=== PATIENT | female | born 1985 | race Caucasian/White ===

== ENCOUNTER 2024-03-09 12:40 | Outpatient (OUT) | payer BC, SELFPAY ==
--- NOTE | 2024-03-09 14:06 | P.CN_ITS ---
Consult Note: HPI Data of Consult Patient: new to practice Consult date: 03/09/24 Requesting Physician: Nir Rizo MD Primary Care Provider: Julio Gotti MD Consult Narrative Reason for consult: neck pain, migraines Narrative: 38yof who presents for evaluation. longstanding history of neck pain, migraines that stem from neck. imaging shows multilevel arthropathy and spondylosis, worst at c4-5, c5-6. has undergone many different conservative measures, including physical therapy, massage, migraine medications. does not wish to take medications any longer. cc:: CC: Nir Rizo MD Review of Systems ROS Status of ROS 10 or more systems reviewed and unremark able except as noted in history and below Meds Home Medications and Allergies Home Medications ?Medication ?Instructions ?Recorded ?Confirmed ?Type albuterol 90 mcg/actuation aerosol mcg inhalation PRN shortness of 03/09/24 History inhaler breath or wheezing pgdrhldysy-hiiipieaorvmg-nixbfdbd 1 cap PO QID PRN pain 03/09/24 03/09/24 History 50 mg-300 mg-40 mg capsule ondansetron HCl 4 mg tablet 4 mg PO TID-QID PRN nausea and 03/09/24 03/09/24 History vomiting sumatriptan succinate 25 mg tablet See Rx Instructions PO .COMPLEX 03/09/24 03/09/24 History (Imitrex) tizanidine 4 mg capsule 4 mg PO BID PRN muscle spasticity 03/09/24 03/09/24 History Allergies Allergy/AdvReac Type Severity Reaction Status Date / Time nalbuphine (From Nubain) Allergy Mild UNKNOWN Verified 03/09/24 13:45 clarithromycin (From Biaxin) AdvReac Mild UNKNOWN Verified 03/09/24 13:45 promethazine (From Phenergan) AdvReac Mild UNKNOWN Verified 03/09/24 13:45 Exam Narrative Exam Narrative: Psych-alert and oriented x 3.? Attentive and appropriate, constitutionally normal, displays normal mood and affect per situation.? There are no obvious deficits in memory, reasoning, or intellect.? Skin-no obvious rashes, bruising, or erythema noted to the patient's area of pain. Extremities-upper extremities are warm with minimal edema and palpable pulses. Cervical- tenderness to palpation noted in the cervical spine and paraspinal musculature.? Pain is elicited with extension, and lateral rotation of the cervical spine.? Range of motion is slightly diminished due to pain. Facet loading maneuvers are positive bilaterally.? Coordination remains intact.? Gait remains non-antalgic. Assessment and Plan Assessment and Plan (1) Cervical spondylosis: Plan 38yof who presents for evaluation. failed conservative measures, as noted. imaging reviewed, as noted. given symptoms and imaging, prudent to attempt diagnostic bilateral c4-5, 5-6 medial branch blocks under fluoroscopic guidance with intention of proceeding to radiofrequency ablation. she is in agreement. meds reviewed, no changes. follow up after procedure.
== END 2024-03-09 12:41 | disposition home or self-care (01) ==
PROVIDERS: PCP Family Medicine; Visit Provider Anesthesiology
DX: M47.812 Spondylosis without myelopathy or radiculopathy, cervical region (principal)
CPT/HCPCS: G0463

== ENCOUNTER 2024-05-04 15:16 | Outpatient (OUT) | payer BC, SELFPAY ==
[2024-05-04 15:39] LABS: Basophils Percent Auto 0.6 % (0.2-2.0); Eosinophils Absolute Auto 0.2 10^3/uL (0.0-0.7); Eosinophils Percent Auto 3.5 % (0.9-7.0); Hematocrit 40.9 % (36.0-48.0); Hemoglobin 13.6 g/dL (12.0-16.0); Immature Granulocytes Abs Auto 0.01 10^3/uL (0.00-0.03); Immature Granulocytes Pct Auto 0.2 % (0.0-0.5); Lymphocytes Absolute Auto 1.4 10^3/uL (1.2-3.8); Lymphocytes Percent Auto 25.7 % (20.5-60.0); Mean Corpuscular HGB Conc 33.3 g/dL (29.9-35.2); Mean Corpuscular Hemoglobin 31.5 pg (26.7-34.0); Mean Corpuscular Volume 94.7 fL (81.0-99.0); Mean Platelet Volume 10.1 fL (9.5-13.5); Monocytes Absolute Auto 0.5 10^3/uL (0.3-0.8); Monocytes Percent Auto 9.1 % (1.7-12.0); Neutrophils Absolute Auto 3.3 10^3/uL (1.4-6.5); Neutrophils Percent Auto 60.9 % (43.0-75.0); Platelet Count 201 10^3/uL (150-450); Red Blood Count 4.32 10^6/uL (4.20-5.40); Red Cell Distribution Width 12.9 % (11.0-15.0); White Blood Count 5.4 10^3/uL (4.0-11.0)
--- NOTE | 2024-05-04 15:54 | XR_ITS ---
[address] [address] Patient Name: RIDGE COPELAND MRN: [id number] date: 1985 Sex: F Assigned Patient Location: LAB Current Patient Location: LAB Accession/Order Number: [id number] Exam Date: 05/04/2024 19:07 Report Date: 05/04/2024 19:15 At the request of: JAMIL SEGUNDO MD Procedure: XR wrist RT min 3V 3 views right wrist plain film COMPARISON: None HISTORY: Right wrist pain ACUTE FINDINGS: None DEGENERATIVE CHANGE: Unremarkable SOFT TISSUE FINDINGS: Unremarkable JOINT EFFUSION: None POSTOP CHANGES: None BONE MINERALIZATION: Adequate XR/XR wrist RT min 3V IMPRESSION: Unremarkable exam Impression dictated by: Edmundo Taylor M.D.05/04/2024 7:15 PM Dictation Location: [place] [address] Electronically authenticated by: [id number] Y Date: 05/04/2024 19:15
--- NOTE | 2024-05-04 15:54 | XR_ITS ---
The [address] [address] Patient Name: RIDGE COPELAND MRN: [id number] date: 1985 Sex: F Assigned Patient Location: LAB Current Patient Location: LAB Accession/Order Number: [id number] Exam Date: 05/04/2024 19:05 Report Date: 05/04/2024 19:07 At the request of: JAMIL SEGUNDO MD Procedure: XR hand AIDEN min 3v 3 views both hands HISTORY: Bilateral hand pain Adequate alignment. No acute bony findings. No significant degeneration. Unremarkable soft tissues. XR/XR hand AIDEN min 3v IMPRESSION: Unremarkable exam Impression dictated by: Edmundo Taylor M.D.05/04/2024 7:07 PM Dictation Location: [place] [address] Electronically authenticated by: [id number] Y Date: 05/04/2024 19:07
[2024-05-04 16:07] LABS: Alanine Aminotransferase 18 U/L (14-59); Albumin Globulin Ratio 1.3; Albumin Level 4.3 g/dL (3.4-5.0); Alkaline Phosphatase 52 U/L (46-116); Anion Gap 15.3; Aspartate Amino Transferase 19 U/L (15-37); BUN Creatinine Ratio 21.8; Bilirubin Total 0.3 mg/dL (0.2-1.0); Calcium 9.2 mg/dL (8.5-10.1); Carbon Dioxide 26.2 mmol/L (21.0-32.0); Chloride 104 mmol/L (98-107); Estimated GFR (African America >60 (>=60 mL/min/1.73m^2); Estimated GFR (Non-African Ame >60 (>=60 mL/min/1.73m^2); Globulin 3.3 g/dL; Glucose 78 mg/dL (74-106); Potassium 3.5 mmol/L (3.5-5.1); Sodium 142 mmol/L (136-145); Total Protein 7.6 g/dL (6.4-8.2); Uric Acid 4.4 mg/dL (2.6-6.0)
[2024-05-04 16:10] LABS: C Reactive Protein <0.50 mg/dL (<=0.50)
[2024-05-06 04:07] LABS: Antistreptolysin O Ab 279.8 IU/mL (0.0-200.0); Rheumatoid Factor (RF) 10.4 IU/mL (<14.0)
[2024-05-06 17:10] LABS: Antinuclear Antibodies, IFA Negative (.)
== END 2024-05-04 15:17 | disposition home or self-care (01) ==
LOC: LAB 15:18
PROVIDERS: PCP Family Medicine; Visit Provider Family Medicine
DX: Z79.899 Other long term (current) drug therapy (principal); M25.59 Pain in other specified joint; D64.9 Anemia, unspecified; M25.531 Pain in right wrist; M79.642 Pain in left hand; M79.641 Pain in right hand
CPT/HCPCS: 36415; 73110; 73130; 80053; 84550; 85025; 86038; 86060; 86140; 86431

== ENCOUNTER 2024-06-19 11:36 | Outpatient (OUT) | payer BC, SELFPAY ==
[2024-06-19 12:14] LABS: Basophils Percent Auto 0.7 % (0.2-2.0); Eosinophils Absolute Auto 0.1 10^3/uL (0.0-0.7); Eosinophils Percent Auto 1.3 % (0.9-7.0); Hematocrit 39.1 % (36.0-48.0); Immature Granulocytes Abs Auto 0.01 10^3/uL (0.00-0.03); Immature Granulocytes Pct Auto 0.2 % (0.0-0.5); Lymphocytes Absolute Auto 1.2 10^3/uL (1.2-3.8); Lymphocytes Percent Auto 26.3 % (20.5-60.0); Mean Corpuscular HGB Conc 33.2 g/dL (29.9-35.2); Mean Corpuscular Hemoglobin 31.1 pg (26.7-34.0); Mean Corpuscular Volume 93.5 fL (81.0-99.0); Mean Platelet Volume 9.8 fL (9.5-13.5); Monocytes Absolute Auto 0.4 10^3/uL (0.3-0.8); Monocytes Percent Auto 9.4 % (1.7-12.0); Neutrophils Absolute Auto 2.8 10^3/uL (1.4-6.5); Neutrophils Percent Auto 62.1 % (43.0-75.0); Platelet Count 224 10^3/uL (150-450); Red Blood Count 4.18 10^6/uL (4.20-5.40); Red Cell Distribution Width 12.5 % (11.0-15.0); White Blood Count 4.6 10^3/uL (4.0-11.0)
[2024-06-19 12:15] LABS: Estimated Average Glucose 105 mg/dL; Glycohemoglobin A1C 5.3 % (4.5-6.2)
[2024-06-19 12:35] LABS: Erythrocyte Sedimentation Rate 6 mm/hr (<=20)
[2024-06-19 12:38] LABS: Alanine Aminotransferase 19 U/L (14-59); Albumin Globulin Ratio 1.4; Albumin Level 4.3 g/dL (3.4-5.0); Alkaline Phosphatase 40 U/L (46-116); Anion Gap 12.7; Aspartate Amino Transferase 18 U/L (15-37); BUN Creatinine Ratio 18.5; Bilirubin Total 0.7 mg/dL (0.2-1.0); Calcium 8.2 mg/dL (8.5-10.1); Chloride 102 mmol/L (98-107); Estimated GFR (African America >60 (>=60 mL/min/1.73m^2); Estimated GFR (Non-African Ame >60 (>=60 mL/min/1.73m^2); Free T3 2.21 pg/mL (2.18-3.98); Globulin 3.1 g/dL; Glucose 84 mg/dL (74-106); Potassium 3.7 mmol/L (3.5-5.1); Sodium 135 mmol/L (136-145); Total Protein 7.4 g/dL (6.4-8.2); Uric Acid 4.1 mg/dL (2.6-6.0)
[2024-06-19 12:41] LABS: C Reactive Protein <0.50 mg/dL (<=0.50)
[2024-06-20 04:07] LABS: Insulin 5.4 uIU/mL (2.6-24.9); Vitamin B12 459 pg/mL (232-1245)
[2024-06-20 06:08] LABS: Antistreptolysin O Ab 265.5 IU/mL (0.0-200.0); Rheumatoid Factor (RF) 10.3 IU/mL (<14.0)
[2024-06-22 14:08] LABS: Anti-dsDNA Antibodies 1 IU/mL (0-9)
[2024-06-24 11:08] LABS: Antinuclear Antibodies, IFA Negative (.)
== END 2024-06-19 11:37 | disposition home or self-care (01) ==
LOC: LAB 11:38
PROVIDERS: PCP Family Medicine; Visit Provider Family Medicine
DX: M25.531 Pain in right wrist (principal); M25.50 Pain in unspecified joint; R59.1 Generalized enlarged lymph nodes; R73.09 Other abnormal glucose; D64.9 Anemia, unspecified; E03.9 Hypothyroidism, unspecified; E55.9 Vitamin D deficiency, unspecified; I10 Essential (primary) hypertension; R53.83 Other fatigue
CPT/HCPCS: 36415; 80053; 82306; 82607; 82728; 82746; 83036; 83525; 83540; 84436; 84443; 84481; 84550; 85025; 85652; 86038; 86060; 86140; 86225; 86431